=== PATIENT | male | born 1975 | race Two or more races ===

== ENCOUNTER 2025-06-20 10:28 | Emergency (ER) | payer OTHER ==
[~2025-06-20] VITALS: Ht 180.3 cm; Wt 99.8 kg
[2025-06-20] MEDS ORDERED: KETOROLAC TROMETHAMINE 60 MG VIAL IM ONE ×2 (12:00→12:03)
[2025-06-20] MEDS ORDERED: DEXAMETHASONE SODIUM PHOSPHATE 4 MG/ML VIAL IV ONE (12:00)
[2025-06-20] MEDS ORDERED: ACETAMINOPHEN 500 MG GEL..CAP PO ONE ×2 (12:00→12:03)
[2025-06-20] MEDS ORDERED: ORPHENADRINE CITRATE 30 MG/ML AMPUL IM ONE (12:00)
[2025-06-20] MEDS ORDERED: ORPHENADRINE CITRATE 30 MG/ML AMPUL ONE (12:02)
[2025-06-20] MEDS ORDERED: DEXAMETHASONE SODIUM PHOSPHATE 4 MG/ML VIAL ONE (12:04)
[2025-06-20] MEDS ORDERED: PEPCID AC20 MG PO (15:32)
[2025-06-20] MEDS ORDERED: NORFLEX100MG PO (15:32)
[2025-06-20] MEDS ORDERED: MOBIC7.5 MG PO (15:32)
== END 2025-06-20 16:45 | disposition home or self-care (01) ==
LOC: ER 10:29
DX: M25.561 Pain in right knee (principal); M71.561 Other bursitis, not elsewhere classified, right knee; Z91.013 Allergy to seafood